=== PATIENT | female | born 1970 | race Two or more races ===

== ENCOUNTER 2024-04-14 14:50 | Emergency (ER) | payer MEDICAID ==
[~2024-04-14] VITALS: Ht 165.1 cm; Wt 90.7 kg
[2024-04-14] MEDS ORDERED: MECLIZINE HCL 25 MG TABLET ONE (15:15)
[2024-04-14] MEDS: MECLIZINE HCL 12.5 MG TABLET PO ONE (15:16)
[2024-04-14] MEDS ORDERED: SUMATRIPTAN SUCCINATE 6 MG/0.5 ML VIAL SQ ONE (15:44)
[2024-04-14] MEDS ORDERED: METOCLOPRAMIDE HCL 10 MG/2 ML VIAL ONE (15:44)
[2024-04-14] MEDS ORDERED: KETOROLAC TROMETHAMINE 15 MG/ML VIAL ONE (15:44)
[2024-04-14] MEDS: SUMATRIPTAN SUCCINATE 6 MG/0.5 ML VIAL SQ ONE (15:52)
[2024-04-14] MEDS: KETOROLAC TROMETHAMINE 15 MG/ML VIAL IV ONE (15:53)
[2024-04-14] MEDS: METOCLOPRAMIDE HCL 10 MG/2 ML VIAL IV ONE (15:53)
[2024-04-14] MEDS: IV NS 0.9% 1,000 ML BAG IV ONE (15:53)
[2024-04-14 16:14] LABS: BASOPHILS % (AUTO) 0.5 % (0.0-2.0); EOSINOPHILS # (AUTO) 0.1 K/uL (0.0-0.7); EOSINOPHILS % (AUTO) 2.1 % (0.0-6.0); HEMATOCRIT 38 % (33-45); HEMOGLOBIN 12.4 g/dL (11.5-14.8); LYMPHOCYTES # (AUTO) 1.9 K/uL (0.8-4.8); LYMPHOCYTES % (AUTO) 30.4 % (20.0-44.0); MEAN CORPUSCULAR HEMOGLOBIN 29 PG (26.0-33.0); MEAN CORPUSCULAR HGB CONC 33 g/dl (31.0-36.0); MEAN CORPUSCULAR VOLUME 88 fL (82-100); MONOCYTES # (AUTO) 0.5 K/uL (0.1-1.30); MONOCYTES % (AUTO) 7.5 % (2.0-12.0); NEUTROPHILS # (AUTO) 3.8 K/uL (1.8-8.9); NEUTROPHILS % (AUTO) 59.5 % (43.0-81.0); PLATELET COUNT (AUTO) 273 K/uL (150-450); RED BLOOD CELL COUNT(AUTO) 4.26 MIL/uL (4.0-5.2); RED CELL DISTRIBUTION WIDTH 13.5 % (11.5-15.0); WHITE BLOOD COUNT (AUTO) 6.4 K/uL (4.3-11.0)
[2024-04-14 16:36] LABS: CALCIUM, SERUM 8.4 mg/dL (8.5-10.1); CARBON DIOXIDE 26 mmol/L (21-32); CHLORIDE 104 mmol/L (98-107); CREATININE 0.7 mg/dL (0.6-1.3); GLUCOSE 115 mg/dL (74-106); POTASSIUM 3.5 mmol/L (3.5-5.1); SODIUM SERUM 137 mmol/L (136-145); UREA NITROGEN, BLOOD 17 mg/dL (7-18)
[2024-04-14 16:39] LABS: MAGNESIUM 2.1 mg/dL (1.8-2.4)
[2024-04-14] MEDS ORDERED: KETO10TA2 PO (17:31)
[2024-04-14] MEDS ORDERED: CYCL5TAB PO (17:31)
[2024-04-14] MEDS ORDERED: SUMA100T PO (17:31)
[2024-04-14 17:41] VITALS: BP 145/80; TEMP 98.6; O2SAT 99
== END 2024-04-14 17:42 | disposition home or self-care (01) ==
LOC: ER 14:57
DX: R42 Dizziness and giddiness (principal); R51.9 Headache, unspecified; M54.30 Sciatica, unspecified side; R11.0 Nausea
CPT/HCPCS: 99285; 96374; 70450; 96361; 96375; 93005; 85025; 80048; 83735; 36415; 84484; 83880; 96372; J8597; J3030; J2765; J7030; J1885